=== PATIENT | male | born 1945 | race Asian ===

== ENCOUNTER 2016-05-27 11:56 | Inpatient (IN) | payer MEDICARE, MEDICAID ==
[~2016-05-27] VITALS: Ht 162.6 cm; Wt 63.3 kg
[~2016-05-27 11:56] MED LIST: ACET325T51 PO; BISA10SU61 RC; CALC600T12 PO; CARB200C8 PO; CHOL500051 PO; FINA5TAB9 PO; INSU100C8 SUBQ; INSU100V7 SUBQ; KEP500TA PO; LEVO75TA4 PO; LISI-567 PO; MULT-1018 PO; POLY17PO6 PO; PROC-4 PO; RANI150C4 PO; SENN8.6C6 PO; SIMV20TA4 PO; SULF1TAB7 PO; TAMS0.4C29 PO
[2016-05-27 11:57] VITALS: BP 111/49; PULSE 93; RESP 16; O2SAT 100
--- NOTE | 2016-05-27 12:55 | ED.REPORT ---
HPI-Seizure Date of Service May 27, 2016 ED Provider: Evan Montague MD A 70 year old developmentally-delayed male with an extensive medical history including seizure disorder, CAD, diabetes, and hypertension presents to the ED via EMS from [facility] after a tonic clonic seizure around 0800 this morning. The seizure lasted 30 seconds and was immediately preceded by a feeling of unease. The patient also reports elevated blood sugar (approx. 320) last night as well as hypotension (approx. 80 systolic) at the time of the seizure. However , his primary complaint at this time is fatigue. He denies fevers, vomiting, or pain currently. Per EMS his bp was 118/67 and his blood sugar was 401, after lunch. Nursing Notes Stated Complaint: SEIZURE Chief Complaint: Seizure Nursing Notes Reviewed: Yes ([employer] not reconciled ) Allergies: Coded Allergies: codeine (Verified Adverse Reaction, Unknown, upset stomach, 05/27/16) Scheduled Calcium Carbonate (Calcium) 600 Mg Tablet 600 MG PO TID Carbamazepine ER (Carbamazepine ER) 200 Mg Cpmp.12hr 200 MG PO 4X A DAY Cholecalciferol (Vitamin D3) (Vitamin D) 5,000 Unit Capsule 5,000 UNIT PO DAILY Finasteride (Finasteride) 5 Mg Tablet 5 MG PO DAILY Insulin Aspart (NovoLOG U100 Insulin Vial) 100 U/Ml U UNIT SUBQ SS Insulin Glargine (Lantus U100 Insulin Vial) 100 Unit/Ml Vial 8 UNIT SUBQ HS Levetiracetam (Keppra) 500 Mg Tablet 500 MG PO BID Levothyroxine (Levothyroxine) 75 Mcg Tablet 75 MCG PO DAILY Lisinopril (Lisinopril) 20 Mg Tablet 20 MG PO DAILY Multivitamin (Multi Vitamin Daily) 1 Each Tablet 1 EACH PO DAILY Polyethylene Glycol 3350 (Miralax) 17 Gm Powd.pack 17 GM PO DAILY Prochlorperazine Maleate (Compazine) 10 Mg Tablet 10 MG PO q6hrs prn Ranitidine (Ranitidine) 150 Mg Capsule 150 MG PO BID Sennosides (Senna) 8.6 Mg Capsule 8.6 MG PO DAILY Simvastatin (Simvastatin) 20 Mg Tablet 20 MG PO HS Sulfamethoxazole/Trimeth 800-160 mg (Bactrim DS) 1 Each Tablet 1 TABLET PO BID Tamsulosin ER (Tamsulosin ER) 0.4 Mg Cap.er.24h 0.8 MG PO DAILY Scheduled PRN Acetaminophen (Acetaminophen) 325 Mg Tablet 650 MG PO Q4H PRN PRN For Fever Bisacodyl (Dulcolax Rectal) 10 Mg Supp.rect 10 MG RC DAILY PRN PRN For Constipation General Time Seen by Provider: 12:49 Transferred From: Rehab facility Chief Complaint Chief Complaint: Seizure, generalized Hx Obtained From: Patient, Retail Warehouse Supervisor Arrived By: Ambulance Onset Occurred: 1 - 4 hours ago Symptom Duration: Since onset Progression Since Onset: Resolved Severity: Current: No pain currently Severity: Maximum: No pain Associated with: Denies: Fever Pertinent Negative: Relieved by nothing Related History: Reports: Developmental abnormality, Diabetes mellitus, Known seizure disorder Immunizations: Unknown Recent Healthcare: No recent doctor visit Similar Sx Previous: Yes Past Medical History Past Medical History Notes: Limited due to mental delay Past Medical History IDDM Seizure disorder - on Keppra and carbamazepine Developmental delay, chronic gait abnormality Schizophrenia Bowel cancer - history of stage III node-positive duodenal cancer and underwent subsequent Whipple in July 2009 as well as adjuvant chemotherapy and has remained in remission since Constipation Enlarged prostate Hypothyroid GERD History of hyponatremia attributed to medications Superficial abscess above L knee, MRSA sensitive to sepsa Reports: Coronary artery disease, Diabetes mellitus, Hypertension Past Surgical History Whipple procedure Tonsillectomy Corrective eye surgery as a child Smoking History Former Smoker Social History Other Social History: Lives in rehab facility Ambulatory Status Independent Review of Systems Review of Systems Note: + elevated blood sugar, hypotension (approx. 80 systolic) Constitutional: Reports: Fatigue, Malaise (Prior to seizure), Denies: Fever Cardiovascular: Denies: Chest pain Musculoskeletal: Denies: Back pain Neurologic: Reports: Seizure Complete sys rev & neg: except as marked. GI: Denies: Vomiting Physical Exam Physical Exam Notes: Initial Vital Signs Vital Signs (First) Date Time Temp Pulse Resp B/P Pulse Ox O2 Delivery O2 Flow Rate FiO2 05/27/16 11:57 36.7 93 16 111/49 100 Room Air Initial VS: Reviewed, Vital signs normal General/Constitutional: Awake, Alert, No acute distress Pleasant Neck: Supple, Full range of motion Respiratory / Chest: Breath sounds NL, Breath sounds = bilat, No respiratory distress Cardiovascular: Heart rate NL, Regular rhythm, Heart sounds NL Not hypotensive Neurologic: Oriented X3, Speech NL, No motor deficits, No sensory deficits Ambulated in the ED without walker with no focal deficits - used a walker earlier today which is rare for him Head / Eyes: Atraumatic, Normocephalic ENT: Airway patent Mouth: Positive: Mucous membranes dry Trauma - ENT Specific: Negative: Tongue injury Lower Extremity / Pelvis / MS: Inspection NL, No edema Interpretation & Diagnostics Interpretation & Diagnostics: Anion Gap: 29.0 mmol/L Urine Drug Screen: Negative Lab Results Interpretation Result Diagram: 05/27/16 1325 05/27/16 1325 Test 05/27/16 13:25 05/27/16 14:43 White Blood Count 11.7th/mm3 (3.8-10.1) Red Blood Count 5.80mil/mm3 (4.40-5.80) Hemoglobin 17.5g/dL (13.8-17.2) Hematocrit 51.1% (41.0-50.0) Mean Corpuscular Volume 88.1fL (81-100) Mean Corpuscular Hemoglobin 30.2pg (27.0-35.0) Mean Corpuscular Hemoglobin Concent 34.2% (32.0-37.0) Red Cell Distribution Width 13.1% (12.3-15.4) Platelet Count 181bil/L (150-400) Neutrophils (%) (Auto) 88.4% (40-74) Lymphocytes (%) (Auto) 3.1% (14-46) Monocytes (%) (Auto) 7.8% (4-12) Eosinophils (%) (Auto) 0.1% (0-5) Basophils (%) (Auto) 0.3% (0-3) Sodium Level 139mEq/L (134-144) Potassium Level 5.5mEq/L (3.5-5.2) Chloride Level 94mEq/L (97-108) Carbon Dioxide Level 16mmol/L (18-29) Blood Urea Nitrogen 22mg/dL (8-27) Creatinine 1.25mg/dL (0.76-1.27) Estimat Glomerular Filtration Rate 61mL/min (>59) Glucose Level 587mg/dL (60-99) Calcium Level 9.6mg/dL (8.5-10.1) Total Bilirubin 1.0mg/dL (0.0-1.2) Aspartate Amino Transf (AST/SGOT) 32U/L (0-50) Alanine Aminotransferase (ALT/SGPT) 22U/L (0-44) Alkaline Phosphatase 210U/L (25-160) Troponin T < 0.010ug/L (0.0-0.011) Total Protein 8.6g/dL (6.4-8.4) Albumin 4.7g/dL (3.4-5.0) Hold Milner Top Tube Received (Received) Urine Color Straw (YELLOW) Urine Appearance Hazy (CLEAR,HAZY) Urine pH 6.0 (5.0-8.0) Urine Specific Sullivan 1.010 (1.003-1.035) Urine Protein Negativemg/dL (NEG,TRACE) Urine Glucose (UA) 1000mg/dL (NEGATIVE) Urine Ketones 15mg/dL (NEGATIVE) Urine Occult Blood Trace (NEGATIVE) Urine Nitrite Negative (NEGATIVE) Urine Bilirubin Negative (NEGATIVE) Urine Urobilinogen Normalmg/dL (NORMAL) Urine Leukocyte Esterase Negative (NEGATIVE) Urine RBC 0-2/hpf (0-2) Urine WBC 0-5/hpf (0-5) Urine Epithelial Cells Occasional/hpf (NONE-MOD) Urine Crystals None seen (NONE SEEN) Urine Bacteria None/hpf (NONE-FEW) Urine Hyaline Casts None/lpf (NONE) Urine Granular Casts None seen (NONE SEEN) Urine Waxy Casts None seen (NONE SEEN) Urine Red Blood Cell Casts None seen (NONE SEEN) Urine White Blood Cell Casts None seen (NONE SEEN) Urine Mucus None seen (None Seen) Urine Trichomonas None seen (NONE SEEN) Urine Yeast None (NONE SEEN) Urinalysis Comment None Urine Culture Reflexed Not indicated Lab Results Interpretation: CBC mild leukocytosis, positive hemoconcentration with elevated hematocrit CMP trace hyperkalemia, moderate metabolic acidosis, severe hyperglycemia-calculated anion gap is 29 consistent with DKA Troponin negative Blood cultures 2 pending UA negative ECG Interpretation ECG Interpretation: Normal sinus rhythm rate 84 No acute ischemic changes No findings of hyperkalemia Time: 15:11 Interpreted by: ED physician X-Ray Chest Interpretation Chest Xray Interpretation: IMPRESSION: No acute cardiopulmonary disease process. Dictated by: Ashli Richards MD, PhD on 05/27/2016 at 15:45 View: Portable, 1 view Interpretation / Wet Read by: Interpret - Radiologist Re-Eval/Medical Decision Med Decision/Clinical Course This is a 70-year-old male resides at a local facility with moderate developmental delay. The patient is a diabetic, and also has a chronic seizure disorder multiple meds. Apparently he normally has a walker that he has access to, but almost never needs-but today he uses a walker to make it out to the nursing center indicate he felt really terrible and weak-and just subsequent to telling the nurses this he had a brief 15 second seizure, with rapid resolution , and return to baseline in terms of mental status-but he was noted to have a blood pressure of 80 facility, and a severely elevated glucose. 911 was initiated, and EMS came-for then the patient was never hypotensive with normal blood pressures, but did have the elevated glucose. The patient's normotensive here in the department, he is energetic and does not appear toxic or weak. He is actually able to and leg. He denies any injury or pain from the seizure. He did not bite his lip or tongue. He denies any infectious symptoms. His lungs are clear, heart tones are normal. He denies chest pain or shortness of breath. His abdomen is soft nontender. He denies dysuria. He is actually able to get up and ambulate here the weakness that he demonstrated at the facility prior to the seizure. Patient is awake alert oriented and at baseline. He has no focal deficits-is no visible signs of trauma, and I am not finding indication that emergent CT scanning of the brain is indicated given long-standing seizure disorder. His Accu-Chek is quite elevated, so labs were obtained. He appears moderately dehydrated with dry mucous membranes, so IV was placed with a lab draw. Labs demonstrate findings consistent with ketoacidosis with a moderate metabolic acidosis, hyperglycemia, and elevated anion gap. A metabolic acidosis could also be caused by seizure activity, however the nurses describe a seizure of only 15 seconds duration (I called and talked to them), the patient appears clinically dehydrated, has an elevated crit compatible with hemoconcentration, and so I suspected this acidosis is indeed secondary to DKA and rather not a alternate etiology. The patient received 10 units of subcutaneous regular insulin, while waiting for labs to return, along with hydration. He is started on a DKA insulin drip, and will require ICU admission given this, however I suspect he may turn around fairly rapidly. Patient has apparently been doing well enough that his diabetic regimen had recently been reduced-please see the MARS details from the long-term. Clinically from the patient, as well as from the staff the nursing facility, I have not been able to this department and immediately precipitant of DKA. EKG and troponin are both normal without signs of ischemia, he has a mild leukocytosis but this is nonspecific and he had a transient seizure. Blood cultures have been drawn. UA is negative. Chest x-rays negative. Source of Hx: Old records Re-Evaluation/Progress #1: Time of Eval: 14:46 Patient Status: Condition improved Re-Evaluation/Progress Note: Discussed with patient lab results, diagnosis, and plan for admit. Patient agrees with plan for care and all questions were addressed. Re-Evaluation/Progress #2: Time of Eval: 17:22 Re-Evaluation/Progress Note: I have just learned, that although if ordered a DKA insulin drip on paper at around 1615, pharmacy reports that they never received the orders medications have not yet been started. Pharmacy is working to rapidly mixed things up and get that to the nurse. Consultation #1: Call Returned at: 13:24 Computer Programmer Analyst: Agrees with eval, Agrees with plan Note: [place]: Additional history obtained. Consultation #2: Referral / Consult Name: Adan Sam MD Consulted With: Hospitalist Call Returned at: 15:12 Computer Programmer Analyst: Agrees with eval, Agrees with plan, Accepts admit Differential Diagnosis: Positive: Seizure disorder, Seizure, tonic-clonic, Negative: Anticonvulsant withdrawal, Hypocalcemia, Hyponatremia, Hypoxemia, Intracranial bleed, Intracranial mass/lesion Counseled Regarding: Diagnosis, Lab results, Need for admission Discharge & Departure Impression: Primary Impression: Diabetic ketoacidosis Diabetes mellitus type: type 1 Diabetes mellitus complication detail: without coma Qualified Code: E10.10 - Type 1 diabetes mellitus with ketoacidosis without coma Additional Impression: Seizure disorder Disposition: ADMITTED TO HOSPITAL Discharge Condition All VS Reviewed: Yes Condition: Stable Referrals: Aroldo Torres MD (PCP) Crit Care Except Billable Proc Time Spent: 30-74 minutes Services Performed: Patient management by me, Time spent at bedside, Reviewing test results, Reviewing imaging, Discussing patient care Scribe Attestation Portions of this note were transcribed by Sultana Partida. I, Dr. Montague, personally performed the history, physical exam, and medical decision-making; I reviewed and confirmed the accuracy of the information in the transcribed note. Signed by: Alexx Cheng, 05/27/2016, 15:20 copies to: Aroldo Torres MD, Matthew F MD May 27, 2016 12:55 SULTANA PARTIDA May 27, 2016 13:13
[2016-05-27] MEDS ORDERED: 0.9% Sodium Chloride 1,000 ML IV ONE ×2 (13:20→14:10)
[2016-05-27] MEDS ORDERED: Insulin Human REGular-Omnicell 100 Unit/mL SUBQ ONE (13:20)
[2016-05-27 13:31] LABS: BASOPHILS % (AUTO) 0.3 % (0-3); EOSINOPHILS % (AUTO) 0.1 % (0-5); MONOCYTES % (AUTO) 7.8 % (4-12); Mean Corpuscular Hemoglobin 30.2 pg (27.0-35.0); Mean Corpuscular Volume 88.1 fL (81-100); NEUTROPHILS % (AUTO) 88.4 % (40-74); Platelet Count 181 bil/L (150-400)
[2016-05-27 14:58] LABS: APPEARANCE,URINE HAZY (CLEAR,HAZY); COLOR,URINE STRAW (YELLOW); OCCULT BLOOD,URINE TRACE (NEGATIVE); UROBILINOGEN,URINE NORMAL (NORMAL)
[2016-05-27] MEDS ORDERED: Alum-Mag Hydrox-Simeth 30 mL Suspension PO PRN (15:25)
[2016-05-27] MEDS ORDERED: Senna-Docusate 8.6-50 mg Tablet PO PRN (15:25)
[2016-05-27] MEDS ORDERED: Polyethylene Glycol (PEG) 17 Gm Powder PO PRN (15:25)
[2016-05-27] MEDS ORDERED: Ondansetron 2 mg/mL 2 mL Inj IVPUSH PRN (15:25)
--- NOTE | 2016-05-27 15:47 | DRSVH ---
PROCEDURE: X-RAY CHEST ONE VIEW, PORTABLE ([id number]) INDICATIONS: DKA ?source, ro pneumonia TECHNIQUE: One view of the chest was acquired. COMPARISON: [facility], CR, XR CHEST 1VW (PORTABLE), 11/08/2015, 9:30. FINDINGS: Surgical changes and devices: Surgical clips project over the upper abdomen which are stable compared to prior examination.. Lungs and pleura: No pleural effusions or pneumothorax. Lungs are clear. Mild elevation the left he midiaphragm is stable. Mediastinum: Mediastinal contours appear normal. Heart size is normal. Bones and chest wall: No suspicious bony lesions. Overlying soft tissues appear unremarkable. Chron ic right eighth rib fracture is noted. IMPRESSION: No acute cardiopulmonary disease process. Dictated by: Ashli Richards MD, PhD on 05/27/2016 at 15:45 Approved by: Ashli Richards MD, PhD on 05/27/2016 at 15:45
[2016-05-27 17:16] VITALS: BP 134/73; PULSE 94; RESP 16; O2SAT 98
[2016-05-27] MEDS ORDERED: DOCU-41 PO (17:28)
[2016-05-27] MEDS ORDERED: LEVE750T16 PO (17:29)
[2016-05-27] MEDS ORDERED: Insulin Human REGular Inj 100 UNIT in 0.9% Sodium Chloride 100 ML IV SCH (17:30)
[2016-05-27 17:50] VITALS: BP 134/73; PULSE 94; RESP 16; O2SAT 98
--- NOTE | 2016-05-27 17:53 | PCM.HPMED ---
Subjective Date of Service May 27, 2016 Primary Provider: Admitting Physician: Adan Sam MD Primary Care Physician: Aroldo Torres MD Attending Physician: Adan Sam MD Admit Status: From the Emergency Department, Full Admit, Critical Care Chief Complaint: DKA. Seizure. History of Present Illness: This is a 70-year-old gentleman with a history of insulin-dependent diabetes mellitus 2 as well as seizure disorder. He also appears to have history of cognitive delay. He resides at [facility]. He is sedentary that his seizure today which brought him to medical attention in the emergency department. There he was found to be hyperglycemic with an anion gap and a CO2 of about 16. The patient notes his blood sugars been riding high for about 2 weeks in the mid 300s. He has had polydipsia and polyuria and has felt extremely thirsty and dehydrated as well as weak. He denies any rhinorrhea cough or sore throat. No myalgias or arthralgias. He notes that he may miss 1 or 2 doses of both Humalog and Lantus because of dysfunction of his pen. He has a sliding scale Humalog and 8 units of Lantus at bedtime. Chest x-ray is negative for infiltrate urine dip is negative. He cannot really identify any obvious symptoms of infection. Review of Systems: No visual changes or hearing loss. No rhinorrhea. He denies any diarrhea, blood per rectum nausea or vomiting. He has had a relatively normal appetite although he has not eaten today. He denies any any skin rash or lesions or recent falls. Also reviewed and otherwise negative except as noted in history of present illness. Allergies Coded Allergies: codeine (Verified Adverse Reaction, Unknown, upset stomach, 05/27/16) Home Medications Humalog sliding scale, Lantus at 8 at bedtime PMH 1. Diabetes mellitus 2, insulin-dependent 2. History of pancreas tumor 3. Seizure disorder 4. Cognitive impairment Surgical History 1. Whipple procedure. Family History Positive for diabetes, mother Social History Occupation: none Hx Alcohol Use: No Hx Substance Use: No Hx Tobacco Use: No Smoking Status: Former Smoker Living Arrangement: Longterm Facility Exam Vital Signs Vital Sign - Last Date Time Temp Pulse Resp B/P Pulse Ox O2 Delivery O2 Flow Rate FiO2 05/27/16 17:16 94 16 134/73 98 Room Air 05/27/16 11:57 36.7 Exam Alert oriented 3, slow answers to questions. No acute distress. Fluent but somewhat broken speech Normal scalp Normal nose and ears Anicteric sclerae, symmetric pupils Oropharynx free of facial droop. Dry oral mucosa. Neck is supple with flat neck veins. Normal thyroid. No adenopathy. Lungs are clear, normal effort. Heart is regular without murmur gallop or rub. Abdomen is soft nondistended without focal tenderness guarding or rebound. Extremities are free of edema.. Good radial and pedal pulses. Skin is free of rash, or lesions. No ecchymosis. Strength +5 all extremities. Muscle tone is normal. Joints are not swollen or deformed. Lab and Diagnostics Result Diagram: 05/27/16 1325 05/27/16 1325 X-Rays, CTs and MRIs Chest x-ray is unremarkable 12-lead ECG Sinus rhythm. No acute ST segment changes. Assessment & Plan 1. DKA. POA. The plan is to admit the patient on a DKA protocol in the CCU on an insulin drip. We will fluid resuscitate with normal saline at 150 per hour. We will follow electrolytes and anion gap carefully. 2. Seizure, with history of seizure. POA. Plan is to resume normal medications and normal doses and follow closely. 3. Cognitive delay. POA. 4. Volume depletion. IVF (NS @ 150/hr) Patient is full resuscitation. Admitted inpt status, estimated LOS is over 2 nights. Pain Evaluation: Adequate Pain Control Resuscitation Status: CPR: Attempt Resuscitation Time spent 40 minutes Adan Sam MD May 27, 2016 17:53
[2016-05-27] MEDS: Calcium Carbonate (Oyster Shell) 500 mg Tablet PO SCH (18:30)
[2016-05-27] MEDS: 0.9% Sodium Chloride 1,000 ML IV SCH (18:58)
[2016-05-27] MEDS ORDERED: D5W1/2NS 1,000 mL IV PRN (19:20)
--- NOTE | 2016-05-27 19:46 | NUR ---
ADMIT TO CCU Report received from RN in ED. Patient arrives to unit at 1755, in stable condition w/ insulin gtt infusing @ 12.6 units/hr and NS @ 150 mL/hr, for a blood sugar of 379 in ED, per DKA protocol. Blood sugar upon arrival was 360, so continued current infusion settings. Patient's vitals WNL, no complaints of pain. Will continue to monitor blood sugars and adjust gtt per DKA protocol.
[2016-05-27 20:13] VITALS: BP 112/53; PULSE 92; RESP 21; O2SAT 99
[2016-05-27] MEDS: carBAMazepine 200 mg ER12 Tablet PO SCH (20:25)
[2016-05-28 00:15] VITALS: BP 93/52; PULSE 62; RESP 16; O2SAT 98
[2016-05-28 02:08] LABS: BASOPHILS % (AUTO) 0.1 % (0-3); EOSINOPHILS % (AUTO) 0.1 % (0-5); MONOCYTES % (AUTO) 12.3 % (4-12); Mean Corpuscular Hemoglobin 30.8 pg (27.0-35.0); Mean Corpuscular Volume 86.7 fL (81-100); NEUTROPHILS % (AUTO) 79.7 % (40-74); Platelet Count 173 bil/L (150-400)
[2016-05-28] MEDS: 0.9% Sodium Chloride 1,000 ML IV SCH ×3 (02:40→14:07)
[2016-05-28] MEDS ORDERED: KCl 40 mEq/D5W 500 mL 40 MEQ in IV Premix 1 EACH IV ONE (03:55)
[2016-05-28 03:59] VITALS: BP 92/57; PULSE 60; RESP 23; O2SAT 97
--- NOTE | 2016-05-28 05:39 | NUR ---
DKA Protocol Insulin gtt, NS @ 15o cc/hr hydrating IVF, D10W or D5 1/2 IVF alternating, BG 91-133, anion gap 10, K+ 3.3 with am labs, started Kcl 40 meq over 4 hrs. HR 57-70's SB-SR, sbp 90's, map>60, pt mentating well, Hospitalist aware with no new order.
[2016-05-28 07:31] VITALS: BP 94/50; PULSE 54; RESP 15; O2SAT 100
[2016-05-28] MEDS ORDERED: Glucose 40% Oral Gel 15 Gm Tube PO PRN (07:35)
[2016-05-28] MEDS ORDERED: Insulin GLARgine 100 Unit/mL Syringe SUBQ ONE (07:35)
--- NOTE | 2016-05-28 07:39 | PCM.PNMED ---
Subjective Date of Service May 28, 2016 Subjective He feels much better. He denies nausea. No difficulty with breathing. No chest or abdominal pain. He is hungry. Exam Vital Signs Vital Sign - Last Date Time Temp Pulse Resp B/P Pulse Ox O2 Delivery O2 Flow Rate FiO2 05/28/16 03:59 36.4 60 23 92/57 97 Room Air Intake and Output 05/27/16 05/27/16 05/28/16 Cumulative From/Thru 15:00 23:00 07:00 05/27/16 11:57 - 05/28/16 05:28 Intake Total 1000 ml 2271 ml 3271 ml Output Total 200 ml 200 ml Balance 1000 ml 2071 ml 3071 ml Intake Oral 75 ml 75 ml IV Total 1000 ml 2196 ml 3196 ml Output Urine Total 200 ml 200 ml # Bowel Movements 0 0 Exam Alert oriented 3. Fluent speech. Anicteric sclerae. Neck supple Lungs are clear, normal effort. Heart is regular without murmur gallop or rub. Abdomen soft nondistended Extremities are free of edema. IVs and Medications Medications Reviewed: Medications were reviewed in detail Lab and Diagnostics Result Diagram: 05/28/16 0200 05/28/16 0200 X-Rays, CTs and MRIs Chest x-ray is unremarkable 12-lead ECG Sinus rhythm. No acute ST segment changes. Assessment & Plan 1. DKA. POA. Resolved. The patient will be converted to subcutaneous insulin today with Lantus 10 now and then 8 daily at bedtime. Will also use 5 of nutritional lispro with correctional. Continue fluid resuscitation with saline at 100. We will check A1c. 2. Seizure, with history of seizure. POA. Plan is to resume normal medications and normal doses and follow closely. 3. Cognitive delay. POA. This is stable. 4. Volume depletion. IVF (NS @ 100/hr) 5. Hypokalemia. The patient will be repleted with a K rider today. We will follow on telemetry. Patient is full resuscitation. Admitted inpt status, estimated LOS is over 2 nights. Pain Evaluation: Adequate Pain Control VTE Mechanical Devices: Intermittant Pneumatic CD Resuscitation Status: CPR: Attempt Resuscitation Time spent 25 minutes Adan Sam MD May 28, 2016 07:39
--- NOTE | 2016-05-28 07:43 | NUR ---
Transfer.. Blood Glucose has been stable and anion gap has normalized. Seen by Dr Sam and will now be transitioned to subcutaneous insulin. Pt feels well and will start on diet. Will tx to [facility] when bed is available
[2016-05-28] MEDS: Insulin LISPRO 300 Unit/3 mL Inj SUBQ SCH ×4 (08:26→20:07)
[2016-05-28] MEDS: Calcium Carbonate (Oyster Shell) 500 mg Tablet PO SCH ×3 (10:27→18:46)
[2016-05-28] MEDS: carBAMazepine 200 mg ER12 Tablet PO SCH ×2 (10:59→20:08)
--- NOTE | 2016-05-28 11:00 | NUR ---
Transfer from [facility] Patient arrived from [facility] via wheelchair. Patient alert and oriented. Patient given his Tegretol XR on arrival to unit.
[2016-05-28 12:25] VITALS: BP 124/72; PULSE 58; RESP 18; O2SAT 99
[2016-05-28 18:47] VITALS: BP 94/57; PULSE 58; RESP 18; O2SAT 99
[2016-05-28] MEDS ORDERED: Insulin GLARgine 100 Unit/mL Syringe SUBQ SCH (21:00)
[2016-05-28 22:06] VITALS: BP 156/77; PULSE 64; RESP 18; O2SAT 95
[2016-05-29] MEDS: 0.9% Sodium Chloride 1,000 ML IV SCH ×2 (01:22→10:59)
[2016-05-29 04:38] VITALS: BP 143/69; PULSE 56; RESP 18; O2SAT 94
--- NOTE | 2016-05-29 05:32 | NUR ---
Uneventful Night Pt denies any pain/SOB/cough/N/V/fever/chills/seizures. Alert and orientedx3, void sufficient urine in urinal. VSS, sleeping most of night. BS 233 at HS, Lantus 8 units and correctional Regular Insulin 1 unit given at HS, recheck BS 119 at 0300.
[2016-05-29 05:50] VITALS: PULSE 63
[2016-05-29] MEDS: Insulin LISPRO 300 Unit/3 mL Inj SUBQ SCH ×2 (08:01→10:59)
[2016-05-29] MEDS: Calcium Carbonate (Oyster Shell) 500 mg Tablet PO SCH ×2 (08:04→10:59)
[2016-05-29] MEDS: carBAMazepine 200 mg ER12 Tablet PO SCH (08:04)
[2016-05-29 10:13] VITALS: PULSE 82
[2016-05-29 10:20] LABS: BASOPHILS % (AUTO) 0.5 % (0-3); EOSINOPHILS % (AUTO) 1.8 % (0-5); MONOCYTES % (AUTO) 8.2 % (4-12); Mean Corpuscular Hemoglobin 30.7 pg (27.0-35.0); Mean Corpuscular Volume 88.2 fL (81-100); NEUTROPHILS % (AUTO) 75.1 % (40-74); Platelet Count 140 bil/L (150-400)
[2016-05-29 10:43] LABS: Magnesium 1.6 mg/dL (1.6-2.6); Phosphorus 2.6 mg/dL (2.5-4.9)
[2016-05-29] MEDS ORDERED: Magnesium Sulf 2 Gm/50mL Water 2 GM in IV Premix 1 EACH IV ONE (11:20)
--- NOTE | 2016-05-29 11:25 | PCM.DIMED ---
Discharge Instructions Date of Service May 29, 2016 Dates of Hospitalization May 27, 2016 at 15:26 Discharge Diagnosis Discharge Diagnosis DKA Diet Diabetic Activity No restrictions Patient Instructions You were hospitalized with mild Diabetic ketoacidosis, which resolved with additional insulin. Instruction to SNF> Please adjust Lantus dosage based on fasting blood sugars, pt currently asymptomatic, labs were stable with lantus 8units and lispro sliding scale. Please provide diabetic diet, as diet discretion seemed a probable triggering factor for this episode. Follow-up plan please follow up with your primary doctor Follow-up with PCP in: 2 weeks Yousif Gordillo MD May 29, 2016 11:25
--- NOTE | 2016-05-29 13:39 | NUR ---
Social Work: Initial Assessment / D/C Data: Pt is a 70 y/o male admitted for DKA. Pt's PCP is Dr Torres, pt's insurance is Medicare with [facility] supp. EMR reivewed. PROVISIONING SPECIALIST met with pt at bedside, role explained. Pt states he lives at [facility] and that he does not drive. Pt has no HH history, no LTC or VA benefits and is not a caregiver for another. Pt agreeable to returning [place] [facility] PROVISIONING SPECIALIST called [facility] [place] that pt can return today. They set up transportation for 2:00pm. No further d/c planning needs at this time. PROVISIONING SPECIALIST will continue to follow if needs arise. Assessment: Pt who is independent at baseline. Plan: Pt will d/c to [facility] today via cabulance at 2:00pm. No further d/c planning needs at this time. PROVISIONING SPECIALIST will continue to follow if needs arise. MONA Costa Addendum: 05/29/16 at 1342 by WES GEORGE Amended: Links added.
--- NOTE | 2016-05-29 14:04 | NUR ---
Social Work: Discharge Data: Pt is on day 2 of hospitalization. EMR reviewed, d/c orders are in. DIRECTOR COUNCIL ON AGING called [facility] who can accept pt today. Pt will d/c via cabulance at 2:00pm today to [facility]. No further d/c planning needed. Assessment: Pt from SNF. Plan: Pt will d/c via cabulance at 2:00pm today to [facility]. No further d/c planning needed. MONA Costa
--- NOTE | 2016-05-29 14:05 | NUR ---
Discharge Pt discharged back to [facility] at 1404. Taken off unit by [facility] transport service. Transfer paperwork sent with transporter. Pt belongings sent with pt, and wallet collected from the safe and returned to pt. Report called to Milly at [facility].
--- NOTE | 2016-05-30 13:40 | PCM.DC.MED ---
Discharge Summary Date of Service May 29, 2016 Dates of Hospitalization Date of Hospital Admission May 27, 2016 at 15:26 Date of Discharge: May 29, 2016 Providers: Admitting Physician: Adan Sam MD Primary Care Physician: Aroldo Torres MD Attending Physician: Adan Sam MD Diagnosis at Time of Discharge Diagnosis at Time of Discharge DKA Procedures XRay, CTs & MRIs Chest x-ray is unremarkable ECG 12 Lead Sinus rhythm. No acute ST segment changes. Brief History H&P performed by Dr. Sam on May 27 This is a 70-year-old gentleman with a history of insulin-dependent diabetes mellitus 2 as well as seizure disorder. He also appears to have history of cognitive delay. He resides at [facility]. He is sedentary that his seizure today which brought him to medical attention in the emergency department. There he was found to be hyperglycemic with an anion gap and a CO2 of about 16. The patient notes his blood sugars been riding high for about 2 weeks in the mid 300s. He has had polydipsia and polyuria and has felt extremely thirsty and dehydrated as well as weak. He denies any rhinorrhea cough or sore throat. No myalgias or arthralgias. He notes that he may miss 1 or 2 doses of both Humalog and Lantus because of dysfunction of his pen. He has a sliding scale Humalog and 8 units of Lantus at bedtime. Chest x-ray is negative for infiltrate urine dip is negative. He cannot really identify any obvious symptoms of infection. Hospital Course Patient was admitted with mild DKA, hyperglycemia 500s, anion gap of 29, started on DKA protocol with insulin gtt, successfully transitioned to long- acting Lantus with lispro sliding scale. Patient tolerated diet well, lying get resolved, denied any symptoms, deemed safe for discharge. Patient remained afebrile, there was no signs of infection could possibly trigger DKA. It was thought that dietary discretion possibly playing a role given patient's cognitive dysfunction, the fact med-noncompliance is unlikely as patient was monitored in SNF. Exam Vital Signs (Last) Date Time Temp Pulse Resp B/P Pulse Ox O2 Delivery O2 Flow Rate FiO2 05/29/16 10:13 82 05/29/16 04:38 36.7 18 143/69 94 Room Air Exam NAD, comfortably laying down on the bed no JVD, MMM, no LAD RRR, nl s1, s2 no mrg CTAB, no w,c S,ND,NT,normoactive BS+ warm, no edema, pulses 2/2 Test 05/27/16 13:25 05/27/16 14:43 05/28/16 02:00 05/29/16 10:13 Troponin T < 0.010ug/L (0.0-0.011) Hold Milner Top Tube Received (Received) Urine Color Straw (YELLOW) Urine Appearance Hazy (CLEAR,HAZY) Urine pH 6.0 (5.0-8.0) Urine Specific [place] 1.010 (1.003-1.035) Urine Protein Negativemg/dL (NEG,TRACE) Urine Glucose (UA) 1000mg/dL (NEGATIVE) Urine Ketones 15mg/dL (NEGATIVE) Urine Occult Blood Trace (NEGATIVE) Urine Nitrite Negative (NEGATIVE) Urine Bilirubin Negative (NEGATIVE) Urine Urobilinogen Normalmg/dL (NORMAL) Urine Leukocyte Esterase Negative (NEGATIVE) Urine RBC 0-2/hpf (0-2) Urine WBC 0-5/hpf (0-5) Urine Epithelial Cells Occasional/hpf (NONE-MOD) Urine Crystals None seen (NONE SEEN) Urine Bacteria None/hpf (NONE-FEW) Urine Hyaline Casts None/lpf (NONE) Urine Granular Casts None seen (NONE SEEN) Urine Waxy Casts None seen (NONE SEEN) Urine Red Blood Cell Casts None seen (NONE SEEN) Urine White Blood Cell Casts None seen (NONE SEEN) Urine Mucus None seen (None Seen) Urine Trichomonas None seen (NONE SEEN) Urine Yeast None (NONE SEEN) Urinalysis Comment None Urine Culture Reflexed Not indicated Hemoglobin A1c 9.6% (4.8-5.6) White Blood Count 7.9th/mm3 (3.8-10.1) Red Blood Count 4.56mil/mm3 (4.40-5.80) Hemoglobin 14.0g/dL (13.8-17.2) Hematocrit 40.2% (41.0-50.0) Mean Corpuscular Volume 88.2fL (81-100) Mean Corpuscular Hemoglobin 30.7pg (27.0-35.0) Mean Corpuscular Hemoglobin Concent 34.8% (32.0-37.0) Red Cell Distribution Width 12.9% (12.3-15.4) Platelet Count 140bil/L (150-400) Neutrophils (%) (Auto) 75.1% (40-74) Lymphocytes (%) (Auto) 14.1% (14-46) Monocytes (%) (Auto) 8.2% (4-12) Eosinophils (%) (Auto) 1.8% (0-5) Basophils (%) (Auto) 0.5% (0-3) Sodium Level 138mEq/L (134-144) Potassium Level 4.2mEq/L (3.5-5.2) Chloride Level 106mEq/L (97-108) Carbon Dioxide Level 21mmol/L (18-29) Blood Urea Nitrogen 15mg/dL (8-27) Creatinine 0.79mg/dL (0.76-1.27) Estimat Glomerular Filtration Rate 103mL/min (>59) Glucose Level 219mg/dL (60-99) Calcium Level 7.9mg/dL (8.5-10.1) Phosphorus Level 2.6mg/dL (2.5-4.9) Magnesium Level 1.6mg/dL (1.6-2.6) Total Bilirubin 0.3mg/dL (0.0-1.2) Aspartate Amino Transf (AST/SGOT) 19U/L (0-50) Alanine Aminotransferase (ALT/SGPT) 14U/L (0-44) Alkaline Phosphatase 113U/L (25-160) Total Protein 5.7g/dL (6.4-8.4) Albumin 3.2g/dL (3.4-5.0) Discharge Medications Discharge Medications Calcium Carbonate (Calcium) 600 Mg Tablet 600 MG PO TID (Reported) Carbamazepine ER (Carbamazepine ER) 200 Mg Cpmp.12hr 200 MG PO BID (Reported) Cholecalciferol (Vitamin D3) (Vitamin D) 5,000 Unit Capsule 5,000 UNIT PO DAILY (Reported) Docusate Sodium (Colace) 100 Mg Capsule 100 MG PO BID (Reported) Finasteride (Finasteride) 5 Mg Tablet 5 MG PO DAILY (Reported) Insulin Aspart (NovoLOG U100 Insulin Vial) 100 U/Ml U UNIT SUBQ SS (Reported) Insulin Glargine (Lantus U100 Insulin Vial) 100 Unit/Ml Vial 8 UNIT SUBQ HS ( Reported) Levetiracetam (Keppra) 750 Mg Tablet 750 MG PO BID (Reported) Levothyroxine (Levothyroxine) 75 Mcg Tablet 75 MCG PO DAILY (Reported) Lisinopril (Lisinopril) 20 Mg Tablet 20 MG PO DAILY (Reported) Multivitamin (Multi Vitamin Daily) 1 Each Tablet 1 EACH PO DAILY (Reported) Polyethylene Glycol 3350 (Miralax) 17 Gm Powd.pack 17 GM PO DAILY (Reported) Prochlorperazine Maleate (Compazine) 10 Mg Tablet 10 MG PO q6hrs prn (Reported) Ranitidine (Ranitidine) 150 Mg Capsule 150 MG PO BID (Reported) Sennosides (Senna) 8.6 Mg Capsule 8.6 MG PO DAILY (Reported) Simvastatin (Simvastatin) 20 Mg Tablet 20 MG PO HS (Reported) Tamsulosin ER (Tamsulosin ER) 0.4 Mg Cap.er.24h 0.8 MG PO DAILY (Reported) As needed Acetaminophen (Acetaminophen) 325 Mg Tablet 650 MG PO Q4H PRN PRN For Fever ( Reported) Bisacodyl (Dulcolax Rectal) 10 Mg Supp.rect 10 MG RC DAILY PRN PRN For Constipation (Reported) Followup Plan Disposition: residential facility Follow-up plan please follow up with your primary doctor Discharge Diet: Diabetic Discharge Activity: No restrictions Patient Instructions You were hospitalized with mild Diabetic ketoacidosis, which resolved with additional insulin. Instruction to SNF> Please adjust Lantus dosage based on fasting blood sugars, pt currently asymptomatic, labs were stable with lantus 8units and lispro sliding scale. Please provide diabetic diet, as diet discretion seemed a probable triggering factor for this episode. Follow-up with PCP in: 2 weeks Time spent 65 minutes Yousif Gordillo MD May 30, 2016 13:40
== END 2016-05-29 14:05 | DRG 638 ==
LOC: SED 11:56 → CCU 15:26 → PCC 05-28 07:45 → MPC 05-28 10:32
PROVIDERS: ADMIT Hospitalist; ATTEND Hospitalist
DX: E13.10 Other specified diabetes mellitus with ketoacidosis without coma (principal); E87.4 Mixed disorder of acid-base balance; E03.9 Hypothyroidism, unspecified; K21.9 Gastro-esophageal reflux disease without esophagitis; I10 Essential (primary) hypertension; I25.10 Atherosclerotic heart disease of native coronary artery without angina pectoris; Z87.891 Personal history of nicotine dependence; G40.909 Epilepsy, unspecified, not intractable, without status epilepticus; Z79.4 Long term (current) use of insulin

== ENCOUNTER 2016-09-07 14:23 | Inpatient (IN) | payer MEDICARE, MEDICAID ==
[~2016-09-07] VITALS: Ht 162.6 cm; Wt 66.9 kg
[~2016-09-07 14:23] MED LIST changes: -BISA10SU61 RC; +DOCU-41 PO; -KEP500TA PO; +LEVE750T16 PO; -PROC-4 PO; -SULF1TAB7 PO
[2016-09-07 14:36] VITALS: BP 103/56; PULSE 77; RESP 16; O2SAT 100
--- NOTE | 2016-09-07 14:47 | ED.REPORT ---
HPI-General Illness Date of Service September 07, 2016 ED Provider: French West DO Pt is a 71 year old male with a hx of DM, schizophrenia, bowel cancer, CAD, HTN and a hernia presenting to the ED via EMS from [facility] complaining of hyperglycemia today. Associated symptoms include erythema on the right groin. Denies fever, chest pain, cough, vomiting or abdominal pain. His blood sugar at 1200 was 500 and at 1300 was 600. Nursing Notes Stated Complaint: HIGH BLOOD SUGAR Chief Complaint: General Complaint Nursing Notes Reviewed: Yes Allergies: Coded Allergies: codeine (Verified Adverse Reaction, Unknown, upset stomach, 05/27/16) Scheduled Calcium Carbonate (Calcium) 600 Mg Tablet 600 MG PO TID Carbamazepine ER (Carbamazepine ER) 200 Mg Cpmp.12hr 200 MG PO BID Cholecalciferol (Vitamin D3) (Vitamin D) 5,000 Unit Capsule 5,000 UNIT PO DAILY Docusate Sodium (Colace) 100 Mg Capsule 100 MG PO BID Finasteride (Finasteride) 5 Mg Tablet 5 MG PO DAILY Insulin Aspart (NovoLOG U100 Insulin Vial) 100 U/Ml U UNIT SUBQ SS Insulin Glargine (Lantus U100 Insulin Vial) 100 Unit/Ml Vial 8 UNIT SUBQ HS Levetiracetam (Keppra) 750 Mg Tablet 750 MG PO BID Levothyroxine (Levothyroxine) 75 Mcg Tablet 75 MCG PO DAILY Lisinopril (Lisinopril) 20 Mg Tablet 20 MG PO DAILY Multivitamin (Multi Vitamin Daily) 1 Each Tablet 1 EACH PO DAILY Polyethylene Glycol 3350 (Miralax) 17 Gm Powd.pack 17 GM PO DAILY Ranitidine (Ranitidine) 150 Mg Capsule 150 MG PO BID Simvastatin (Simvastatin) 20 Mg Tablet 20 MG PO HS Tamsulosin (Flomax) 0.4 Mg Capsule 0.4 MG PO DAILY Tamsulosin ER (Tamsulosin ER) 0.4 Mg Cap.er.24h 0.4 MG PO DAILY Scheduled PRN Acetaminophen (Acetaminophen) 325 Mg Tablet 650 MG PO Q4H PRN PRN For Fever Sennosides (Senna) 8.6 Mg Tablet 8.6 MG PO PRN For Constipation General Time Seen by MD: 14:41 Chief Complaint Other (Hyperglycemia) Hx Obtained From: Patient, EMS Arrived By: Ambulance Sudden in Onset?: No Onset Occurred: 1 - 4 hours ago Symptom Duration: Since onset Severity: Current: No pain currently Severity: Maximum: No pain Recent Healthcare: No recent doctor visit, No recent hospitalization Similar Sx Previous: Yes Past Medical History Past Medical History Notes: Limited due to mental delay Past Medical History IDDM Seizure disorder - on Keppra and carbamazepine Developmental delay, chronic gait abnormality Schizophrenia Bowel cancer - history of stage III node-positive duodenal cancer and underwent subsequent Whipple in July 2009 as well as adjuvant chemotherapy and has remained in remission since Constipation Enlarged prostate Hypothyroid GERD History of hyponatremia attributed to medications Superficial abscess above L knee, MRSA sensitive to sepsa Reports: Coronary artery disease, Diabetes mellitus, Hypertension Past Surgical History Whipple procedure Tonsillectomy Corrective eye surgery as a child Smoking History Former Smoker Social History Other Social History: Lives in rehab facility Ambulatory Status Independent Review of Systems Full Review of Systems Constitutional: Denies: Fever Respiratory: Denies: Non-productive cough Cardiovascular: Denies: Chest pain GI: Denies: Abdominal pain, Nausea, Vomiting Skin: Reports Rash (Groin) Complete sys rev & neg: except as marked. Physical Exam Vital Signs Vital Signs Date Time Temp Pulse Resp B/P Pulse Ox O2 Delivery O2 Flow Rate FiO2 09/07/16 14:36 36.5 77 16 103/56 100 Room Air Initial VS: Reviewed General/Constitutional: Well-developed, Well-nourished Head / Eyes: Atraumatic, Normocephalic, PERRL ENT: Mucous membranes moist, Conjunctiva normal, No scleral icterus Respiratory: Breath sounds normal, Clear to auscultation, No respiratory distress Cardiovascular: Regular rate & rhythm, Heart sounds normal, Intact distal pulses Extremities: Vascular intact, Neuro intact, No swelling, No tenderness Neurologic: Alert, Oriented, Nonfocal Abdomen: No guarding, No rebound Organomegaly / Mass / Hernia: Positive: Hernia inguinal R (Easily reducible bedside) Skin: Warm, Dry, Intact Small area of folliculitis that did not look affected. Psychiatric: Mood NL, Not suicidal, Cognitive function NL, Thought content NL Odd affect Interpretation & Diagnostics Interpretation & Diagnostics: VBG: pH:7.236 pCO2:30 pO2:66.7 cHCO3:12.1 cBase:-14.1 Lab Results Interpretation Result Diagram: 09/07/16 1451 09/07/16 1451 Test 09/07/16 14:51 White Blood Count 6.6th/mm3 (3.8-10.1) Red Blood Count 5.37mil/mm3 (4.40-5.80) Hemoglobin 16.5g/dL (13.8-17.2) Hematocrit 47.7% (41.0-50.0) Mean Corpuscular Volume 88.8fL (81-100) Mean Corpuscular Hemoglobin 30.7pg (27.0-35.0) Mean Corpuscular Hemoglobin Concent 34.6% (32.0-37.0) Red Cell Distribution Width 13.7% (12.3-15.4) Platelet Count 206bil/L (150-400) Neutrophils (%) (Auto) 88.2% (40-74) Lymphocytes (%) (Auto) 6.9% (14-46) Monocytes (%) (Auto) 4.1% (4-12) Eosinophils (%) (Auto) 0% (0-5) Basophils (%) (Auto) 0.6% (0-3) Sodium Level 126mEq/L (134-144) Potassium Level 5.1mEq/L (3.5-5.2) Chloride Level 80mEq/L (97-108) Carbon Dioxide Level 10mmol/L (18-29) Blood Urea Nitrogen 28mg/dL (8-27) Creatinine 1.31mg/dL (0.76-1.27) Estimat Glomerular Filtration Rate 57mL/min (>59) Glucose Level 731mg/dL (60-99) Calcium Level 9.5mg/dL (8.5-10.1) Magnesium Level 1.9mg/dL (1.6-2.6) Total Bilirubin 0.8mg/dL (0.0-1.2) Aspartate Amino Transf (AST/SGOT) 63U/L (0-50) Alanine Aminotransferase (ALT/SGPT) 43U/L (0-44) Alkaline Phosphatase 173U/L (25-160) Total Protein 7.8g/dL (6.4-8.4) Albumin 4.6g/dL (3.4-5.0) Ketones Small (Negative) Re-Eval/Medical Decision Med Decision/Clinical Course Overall patient has decreased air do not suspect that he has obvious infection his vital signs and white count are normal, no particular pulmonary symptoms complains of groin infection, however on exam it is a single isolated small area of folliculitis does not seem to be significantly infected. Insulin drip and IV fluids are initiated. Patient will be admitted to intensive care. Time of Eval: 15:30 Patient Status: Condition improved Re-Evaluation/Progress Note: Discussed plan for admission. Pt understands and agrees. Consultation : Referral / Consult Name: Adan Sam MD Consulted With: Hospitalist Call Returned at: 15:23 Lead Sustainability Specialist: Will see patient, Agrees with plan, Accepts admit Counseled Regarding: Diagnosis, Lab results, Need for follow-up, When/why to return to ED Discharge & Departure Primary Impression: DKA (diabetic ketoacidoses) Diabetes mellitus type: type 2 Diabetes mellitus complication detail: without coma Qualified Code: E13.10 - Other specified diabetes mellitus with ketoacidosis without coma Additional Impression: Folliculitis Disposition: ADMITTED TO HOSPITAL Discharge Condition All VS Reviewed: Yes Condition: Improved Referrals: Aroldo Torres MD (PCP) Crit Care Except Billable Proc Time Spent: 30-74 minutes Services Performed: Patient management by me, Time spent at bedside, Reviewing test results Critical Care Notes: See MDM Scribe Attestation Portions of this note were transcribed by Marisabel Garcia. I, Dr. West personally performed the history, physical exam and medical decision-making; I reviewed and confirmed the accuracy of the information in the transcribed note. Signed by: Alexx Arredondo, 09/07/2016 at 1541. copies to: Aroldo Torres MD, Timothy S DO September 07, 2016 14:47 MARISABEL GARCIA September 07, 2016 14:55
[2016-09-07 14:54] LABS: BASOPHILS % (AUTO) 0.6 % (0-3); EOSINOPHILS % (AUTO) 0 % (0-5); MONOCYTES % (AUTO) 4.1 % (4-12); Mean Corpuscular Hemoglobin 30.7 pg (27.0-35.0); Mean Corpuscular Volume 88.8 fL (81-100); NEUTROPHILS % (AUTO) 88.2 % (40-74); Platelet Count 206 bil/L (150-400)
--- NOTE | 2016-09-07 15:10 | ABG ---
DateTimeAnalyzed 15:04:00 -_ pH ____7.236 - pCO2 ___29.5__ -mmHg pO2 ___66.7__ -mmHg HCO3- ___12.1__ -mmol/L ABE __-14.1__ -mmol/L tHb ___15.5__ -g/dL O2Hb ___87.4__ -% COHb ____1.3__ -% MetHb ____1.3__ -% sO2 ___89.7__ -% FIO2 ___21.0__ -% Drawn By Prisillia - Date/Time Notified____ 15:10:00 -_ Oxygen Device 1 RA - Notified By lw - Notified Whom ___Dr. Okelley - B 762 -mmHg tO2 ___19.0__ -Vol% Adan test N/A -
[2016-09-07 15:20] LABS: Magnesium 1.9 mg/dL (1.6-2.6)
[2016-09-07] MEDS ORDERED: Insulin Human REGular Inj 100 UNIT in 0.9% Sodium Chloride 100 ML IV SCH (15:30)
[2016-09-07] MEDS ORDERED: D5W1/2NS 1,000 mL IV PRN (15:35)
[2016-09-07] MEDS ORDERED: TAMS0.4C98 PO (15:40)
[2016-09-07] MEDS ORDERED: SENN-133 PO (15:40)
[2016-09-07] MEDS ORDERED: 0.9% Sodium Chloride 1,000 ML IV SCH (15:42)
[2016-09-07] MEDS ORDERED: Alum-Mag Hydrox-Simeth 30 mL Suspension PO PRN ×2 (15:45→16:10)
[2016-09-07] MEDS ORDERED: Ondansetron 2 mg/mL 2 mL Inj IVPUSH PRN ×2 (15:45→16:10)
[2016-09-07] MEDS: 0.9% Sodium Chloride 1,000 ML IV SCH ×3 (15:54→21:45)
[2016-09-07] MEDS ORDERED: Senna-Docusate 8.6-50 mg Tablet PO PRN (16:10)
[2016-09-07] MEDS ORDERED: Polyethylene Glycol (PEG) 17 Gm Powder PO PRN (16:10)
--- NOTE | 2016-09-07 16:11 | DRSVH ---
PROCEDURE: X-RAY CHEST ONE VIEW, PORTABLE ([id number]) INDICATIONS: Diabetic ketoacidosis. TECHNIQUE: One view of the chest was acquired. COMPARISON: [facility], CR, XR CHEST 1VW (PORTABLE), 05/27/2016, 15:14. FINDINGS: Surgical changes and devices: None. Lungs and pleura: Mild elevation of the left diaphragm is similar to the prior study. There is minim al left basilar atelectasis. No focal consolidation, effusion, or pneumothorax is evident. Mediastinum: Mediastinal contours appear normal. Heart size is normal. There is mild aortic athero sclerosis. Bones and chest wall: No suspicious bony lesions. The bone mineralization is diffusely decreased. O verlying soft tissues appear unremarkable. IMPRESSION: Mild left basilar atelectasis. No pneumonia. Dictated by: Cornell Franco M.D. on 09/07/2016 at 15:08 Approved by: Cornell Franco M.D. on 09/07/2016 at 15:09
--- NOTE | 2016-09-07 16:30 | NUR ---
admit/med rec/plan pt admitted from ED. Pt is a poor historian. Confirmed old history as much as possible with patient. Awaiting med rec from SNF. Plan to treat for DKA and possible infection until able to rule out infection. Pt has a bizarre affect but does not appear to be actively hallucinating.
[2016-09-07 16:49] VITALS: BP 114/50; PULSE 90; RESP 26; O2SAT 98
[2016-09-07 16:53] LABS: APPEARANCE,URINE CLEAR (CLEAR,HAZY); COLOR,URINE YELLOW (YELLOW); OCCULT BLOOD,URINE NEGATIVE (NEGATIVE); UROBILINOGEN,URINE NORMAL (NORMAL)
[2016-09-07 17:32] LABS: Magnesium 1.7 mg/dL (1.6-2.6)
--- NOTE | 2016-09-07 17:38 | DRSVH ---
PROCEDURE: CT BRAIN WITHOUT CONTRAST ([id number]) INDICATIONS: AMS, gait ataxia TECHNIQUE: Noncontrast 4.5 mm thick angled axial sections acquired from the foramen magnum to the vertex, with c oronal reformats. COMPARISON: [facility], CT, BRAIN W/O CONTRAST, 01/11/2011, 8:05. FINDINGS: Image quality: Excellent. CSF spaces: Basal cisterns are patent. No extra-axial fluid collections. The ventricles are symmet hortencia in size and shape. Brain: No intracranial bleeds or masses. There is cerebral volume loss for age, with resultant vent ricular and sulcal prominence. There are periventricular and deep white matter chronic small vessel ischemic changes. There is intracranial internal carotid artery atherosclerosis. Prominent posterio r falx calcification as before Skull and face: Calvarium and visualized facial bones appear intact, without suspicious lesions. Sinuses: Visualized sinuses and mastoids are clear. IMPRESSION: No acute intracranial process. Dictated by: Joe Bone M.D. on 09/07/2016 at 17:35 Approved by: Joe Bone M.D. on 09/07/2016 at 17:37
--- NOTE | 2016-09-07 17:42 | PCM.HPMED ---
Subjective Date of Service September 07, 2016 Primary Provider: Admitting Physician: Adan Sam MD Primary Care Physician: Aroldo Torres MD Attending Physician: Adan Sam MD Chief Complaint: High serum glucose History of Present Illness: Derek Paiz is a 71 year old man with past medical history significant for insulin-dependent diabetes mellitus, seizure disorder, cognitive delay, adenocarcinoma of the duodenum s/p Whipple now in remission, schizophrenia, CAD , HTN who presented to the [facility] ED from [facility] for hyperglycemia and ketones in the urine. The patient is a very poor historian so much of the information was obtained from the chart records and other staff. The patient cannot express if there has been any precipitating factors leading up to his DKA. His thoughts are tangential but occasionally lucid. He was very focused on his blood sugar readings and expressed that they have gone up throughout the day into the 600s. He states he has had DKA twice before, once in his 40s due to aspiration pneumonia and once last year due to a seizure. He states he uses 8 units of Lantus at night and uses a sliding scale of Humalog but does not know how much. He told the ED RN that he has been having problems with ataxia and has had issues with his gait and required a walker which he usually does not use. He denied any chest pain, fever, cough, vomiting, or abdominal pain but did note a rash in his groin. In the ED his vital signs were stable. He was started on an insulin drip and given a bolus of NS. Review of Systems: A comprehensive review of systems was conducted with the patient and found to be negative except as above in the History of Present Illness. Allergies Coded Allergies: codeine (Verified Adverse Reaction, Unknown, upset stomach, 05/27/16) Home Medications Scheduled Calcium Carbonate (Calcium) 600 Mg Tablet 600 MG PO TID Carbamazepine ER (Carbamazepine ER) 200 Mg Cpmp.12hr 200 MG PO BID Cholecalciferol (Vitamin D3) (Vitamin D) 5,000 Unit Capsule 5,000 UNIT PO DAILY Docusate Sodium (Colace) 100 Mg Capsule 100 MG PO BID Finasteride (Finasteride) 5 Mg Tablet 5 MG PO DAILY Insulin Aspart (NovoLOG U100 Insulin Vial) 100 U/Ml U UNIT SUBQ SS Insulin Glargine (Lantus U100 Insulin Vial) 100 Unit/Ml Vial 8 UNIT SUBQ HS Levetiracetam (Keppra) 750 Mg Tablet 750 MG PO BID Levothyroxine (Levothyroxine) 75 Mcg Tablet 75 MCG PO DAILY Lisinopril (Lisinopril) 20 Mg Tablet 20 MG PO DAILY Multivitamin (Multi Vitamin Daily) 1 Each Tablet 1 EACH PO DAILY Polyethylene Glycol 3350 (Miralax) 17 Gm Powd.pack 17 GM PO DAILY Ranitidine (Ranitidine) 150 Mg Capsule 150 MG PO BID Simvastatin (Simvastatin) 20 Mg Tablet 20 MG PO HS Tamsulosin (Flomax) 0.4 Mg Capsule 0.4 MG PO DAILY Tamsulosin ER (Tamsulosin ER) 0.4 Mg Cap.er.24h 0.4 MG PO DAILY Scheduled PRN Acetaminophen (Acetaminophen) 325 Mg Tablet 650 MG PO Q4H PRN PRN For Fever Sennosides (Senna) 8.6 Mg Tablet 8.6 MG PO PRN For Constipation PMH IDDM Seizure disorder - on Keppra and carbamazepine Developmental delay Schizophrenia Bowel cancer - history of stage III node-positive duodenal cancer and underwent subsequent Whipple in July 2009 as well as adjuvant chemotherapy and has remained in remission since Enlarged prostate Hypothyroid GERD History of hyponatremia attributed to medications Superficial abscess above L knee, MRSA CAD Surgical History Whipple procedure Tonsillectomy Corrective eye surgery as a child Family History Mother had type 1 diabetes Social History Hx Alcohol Use: No Hx Substance Use: No Hx Tobacco Use: No Smoking Status: Former Smoker Exam Vital Signs Vital Sign - Last Date Time Temp Pulse Resp B/P Pulse Ox O2 Delivery O2 Flow Rate FiO2 09/07/16 14:36 36.5 77 16 103/56 100 Room Air Exam General: No acute distress, well-developed, well-nourished, appropriately interactive HEENT: Normocephalic, atraumatic. External ears without defect. Pupils equal, round, and reactive to light and accommodation. Anicteric sclerae, moist conjunctivae, and no lid lag. Oropharynx free of erythema and cobble stoning with moist mucosa. Neck: Supple with full range of motion. No jugular venous distension. No bruits. No lymphadenopathy or thyromegaly. Cardiovascular: Regular rate and rhythm with no murmurs, rubs, or gallops appreciated Pulmonary: Clear to auscultation bilaterally with no crackles, wheezes, or rhonchi. Normal respiratory effort with no use of accessory muscles. Abdomen: Bowel tones present. Soft, nontender, nondistended. No hepatosplenomegaly or masses appreciated. Extremities: No clubbing, cyanosis, edema, or lymphadenopathy appreciated. Skin: Normal temperature, turgor, and texture; no ulcers, or subcutaneous nodules appreciated. Folliculitis in the groin. Neurological: Cranial nerves grossly intact. Noncompliant with neurological exam. Psychiatric: Normal mood and affect. Alert and oriented to person, place, and time but thoughts are tangential and difficult to follow. Lab and Diagnostics Result Diagram: 09/07/16 1451 09/07/16 1451 X-Rays, CTs and MRIs X-RAY CHEST ONE VIEW, PORTABLE IMPRESSION: Mild left basilar atelectasis. No pneumonia. Dictated by: Cornell Franco M.D. on 09/07/2016 at 15:08 Additional Diagnostics: Venous Blood Gas DateTimeAnalyzed 15:04:00 -_ pH ____7.236 - pCO2 ___29.5__ -mmHg pO2 ___66.7__ -mmHg HCO3- ___12.1__ -mmol/L Assessment & Plan Derek Paiz is a 71 year old man with past medical history significant for insulin-dependent diabetes mellitus, seizure disorder, cognitive delay, adenocarcinoma of the duodenum s/p Whipple now in remission, schizophrenia, CAD , HTN who presented to the [facility] ED from [facility] for hyperglycemia and ketones in the urine. Diabetic ketoacidosis in the setting of type 1 diabetes mellitus, present on admission -Etiology unclear as patient is a poor historian. Infectious etiology seems unlikely however will order blood cultures, UA and procalcitonin. -Patient reportedly had worsening gate, which is concerning for a stroke. Will proceed with a non-contrast CT of brain. -Patient does have a history of CAD, so will proceed with a troponin and EKG -Anion Gap 36, will continue to check BMP Q4 -DKA protocol initiated by the ED, will continue with clarification: -NS at 200 ml/hr, when blood glucose is <250 but the patient still has a gap > 12 switch to D5 1/2NS at 150 ml/hr -If glucose consistently <150 for one hour, contact provider. Do not simply stop insulin drip. -Continue insulin drip until gap <12. Keep glucose between 150-200 until gap is <12. -When gap <12, contact provider for long acting insulin orders. Please overlap insulin drip with long acting insulin by at least 1 hour. -If K <4.5, contact provider. If K is under 4.5 add add 40 mEq K to IVF: NS + 40 mEq K at 200 mL/hour (MAX RATE: peripheral 250 mL/hr) OR if blood glucose <200 AND anion gap >12: Give D51/2NS +40 mEq K at 200 mL/hour (MAX RATE same as above) -When K >5.3 stop fluid with K and switch back to NS or D51/2NS at prior rate. -Do not stop insulin unless potassium drops <3. Insulin dependent diabetes mellitus type 1, poorly controlled -Most recent A1C 9.6% -Patient was diagnosed at at 20 and has been on insulin most of his life Anion gap metabolic acidosis -Delta delta of 1.8 suggestive of a pure HAGMA -Venous pH of 7.236, venous CO2 of 29.5 arguing against respiratory acidosis -Consider repeat ABG in am. Acute kidney injury, present on admission -Baseline Cr of 0.8, current Cr 1.31 -Etiology unclear, will follow up on a UA. Possibly due to a post-renal process as patient does have an enlarged prostate and is on Flomax. -Urine electrolytes Seizure disorder -Continue home medications once patient is no longer NPO -Will give IV Keppra for now Schizophrenia -Continue home medications once patient is no longer NPO Hypertension -Continue home medications once patient is no longer NPO BPH -Hold off on Flomax for now CODE STATUS: FULL CODE Patient is admitted under inpatient status with expected length of stay greater than 2 midnights due to severity of presenting symptoms, risk of adverse event, and complexity of treatment plan. Time spent 60 min Attending Statement Patient seen and examined with house staff. Agree with all attached documentation. Selina George DO September 07, 2016 16:19 Adan Sam MD September 08, 2016 15:51
[2016-09-07 17:49] LABS: TROPONIN T < 0.010 ug/L (0.0-0.011)
[2016-09-07] MEDS: levETIRAcetam Inj 1,000 MG in IV Premix 1 EACH IV ONE ×2 (17:50→18:36)
[2016-09-07] MEDS: Heparin 5,000 Unit/mL Inj SUBQ SCH (18:37)
[2016-09-07] MEDS ORDERED: Piperacillin-Tazo 3.375 Gm Inj 3.375 GM in Dextrose 5% Minibag Plus 50 ML IV ONE (19:10)
[2016-09-07 19:49] VITALS: BP 117/55; PULSE 87; RESP 21; O2SAT 100
[2016-09-07 20:23] LABS: BASOPHILS % (AUTO) 0.2 % (0-3); EOSINOPHILS % (AUTO) 0 % (0-5); MONOCYTES % (AUTO) 9.1 % (4-12); Mean Corpuscular Hemoglobin 30.7 pg (27.0-35.0); Mean Corpuscular Volume 88.8 fL (81-100); NEUTROPHILS % (AUTO) 83.7 % (40-74); Platelet Count 178 bil/L (150-400)
[2016-09-07] MEDS: carBAMazepine 200 mg ER12 Tablet PO SCH (20:48)
[2016-09-07] MEDS ORDERED: Insulin Human REGular 100 Units/100 mL NS IV SCH ×2 (21:05)
[2016-09-07] MEDS ORDERED: Insulin Human REGular 300 Unit/3 mL Inj IV PRN (21:05)
--- NOTE | 2016-09-07 23:20 | NUR ---
IV Keppra/PO Keppra pt takes Keppra at home, isn't compatible with insulin gtt talked to MD who changed to PO, IV Keppra was scanned by previous RN but pt didn't received this RN gave PO Keppra.
[2016-09-08] VITALS (8 sets, daily range): BP systolic 84–138; BP diastolic 48–66; PULSE 54–75; RESP 12–18; O2SAT 98–100
[2016-09-08] MEDS ORDERED: KCl 40 mEq/500 mL D5W(K 3 - 3.7 & Creat < 2) IV ONE (00:45)
[2016-09-08] MEDS: Heparin 5,000 Unit/mL Inj SUBQ SCH ×3 (00:55→16:44)
[2016-09-08] MEDS: 0.9% Sodium Chloride 1,000 ML IV SCH ×3 (02:35→13:29)
--- NOTE | 2016-09-08 06:34 | NUR ---
potassium pts potassium was 3.2 gave 40mEq KCL IV rider f/u potassium was 3.5 per repletion protocol will order another 40mEq KCL IV rider pts tele SR most of night this morning SB rate 50s.
--- NOTE | 2016-09-08 06:35 | NUR ---
DKA pts anion gap this morning 14, DKA protocol still in place, at this time BG 114 insulin running at 0.05uinits/kg/hr, D10 at 60cc/hr and NS at 200cc/hr, pt only voiding 900cc this shift bladder scanned with 356 pt not wanting alejandra cath placed and said he will try and void again.
[2016-09-08] MEDS ORDERED: KCl 40 mEq/D5W 500 mL 40 MEQ in IV Premix 500 EACH IV ONE (07:25)
[2016-09-08] MEDS ORDERED: 0.9% Sodium Chloride 1,000 ML IV ONE (08:15)
[2016-09-08] MEDS: carBAMazepine 200 mg ER12 Tablet PO SCH ×2 (08:20→20:40)
[2016-09-08] MEDS ORDERED: Insulin Human NPH-Reg 70-30 100 Unit/mL 3 mL Pen SUBQ ONE (13:45)
--- NOTE | 2016-09-08 15:42 | PCM.PNMED ---
Subjective Date of Service September 08, 2016 Subjective Derek Paiz is a 71 year old man with past medical history significant for insulin-dependent diabetes mellitus, seizure disorder, cognitive delay, adenocarcinoma of the duodenum s/p Whipple now in remission, schizophrenia, CAD , HTN who presented to the [facility] ED from [facility] for hyperglycemia and ketones in the urine. Hospital day #2. Overnight: No acute events. Continued with DKA protocol. Today: Patient is more clear and denies any pain but does note that he still has a groin rash. He would like to eat. The remainder of the ROS is negative except as noted above. Exam Vital Signs Vital Sign - Last Date Time Temp Pulse Resp B/P Pulse Ox O2 Delivery O2 Flow Rate FiO2 09/08/16 08:59 36.8 56 14 84/56 99 Room Air Intake and Output 09/07/16 09/07/16 09/08/16 Cumulative From/Thru 15:00 23:00 07:00 09/07/16 14:36 - 09/08/16 06:22 Intake Total 2335 ml 3370 ml 5705 ml Output Total 400 ml 900 ml 1300 ml Balance 1935 ml 2470 ml 4405 ml Intake Oral 0 ml 0 ml IV Total 2335 ml 3370 ml 5705 ml Output Urine Total 400 ml 900 ml 1300 ml # Bowel Movements 1 1 Exam General: No acute distress, well-developed, well-nourished, appropriately interactive HEENT: Normocephalic, atraumatic. External ears without defect. Pupils equal, round, and reactive to light and accommodation. Anicteric sclerae, moist conjunctivae, and no lid lag. Oropharynx free of erythema and cobble stoning with moist mucosa. Neck: Supple with full range of motion. No jugular venous distension. No bruits. No lymphadenopathy or thyromegaly. Cardiovascular: Regular rate and rhythm with no murmurs, rubs, or gallops appreciated Pulmonary: Clear to auscultation bilaterally with no crackles, wheezes, or rhonchi. Normal respiratory effort with no use of accessory muscles. Abdomen: Bowel tones present. Soft, nontender, nondistended. No hepatosplenomegaly or masses appreciated. Extremities: No clubbing, cyanosis, edema, or lymphadenopathy appreciated. Skin: Normal temperature, turgor, and texture; no ulcers, or subcutaneous nodules appreciated. Folliculitis in the groin. Neurological: Cranial nerves grossly intact. Noncompliant with neurological exam. Psychiatric: Normal mood and affect. Alert and oriented to person, place, and time but thoughts are tangential and difficult to follow although improved from yesterday. IVs and Medications Medications Reviewed: Medications were reviewed in detail Lab and Diagnostics Result Diagram: 09/07/16 1947 09/08/16 1245 X-Rays, CTs and MRIs X-RAY CHEST ONE VIEW, PORTABLE IMPRESSION: Mild left basilar atelectasis. No pneumonia. Dictated by: Cornell Franco M.D. on 09/07/2016 at 15:08 Additional Diagnostics Venous Blood Gas DateTimeAnalyzed 15:04:00 -_ pH ____7.236 - pCO2 ___29.5__ -mmHg pO2 ___66.7__ -mmHg HCO3- ___12.1__ -mmol/L Assessment & Plan Derek Paiz is a 71 year old man with past medical history significant for insulin-dependent diabetes mellitus, seizure disorder, cognitive delay, adenocarcinoma of the duodenum s/p Whipple now in remission, schizophrenia, CAD , HTN who presented to the [facility] ED from [facility] for hyperglycemia and ketones in the urine. Hospital day #2 Diabetic ketoacidosis in the setting of type 1 diabetes mellitus, present on admission, resolved. -Etiology unclear as patient is a poor historian. Infectious etiology seems unlikely -blood cultures, UA and procalcitonin negative. -Patient reportedly had worsening gate. Non-contrast CT of brain negative. -Patient does have a history of CAD, but troponin negative -Anion Gap 36 closed. -DKA protocol initiated by the ED, continued. -Given 18 units of NPH. Will resume home 8 units Lantus this PM with correctional scale Lispro. Insulin dependent diabetes mellitus type 1, poorly controlled -Most recent A1C 9.6% -Patient was diagnosed at 20 and has been on insulin most of his life Anion gap metabolic acidosis, resolved -Delta delta of 1.8 suggestive of a pure HAGMA due to lactic acid and ketones -Venous pH of 7.236, venous CO2 of 29.5 arguing against respiratory acidosis Acute kidney injury, present on admission -Baseline Cr of 0.8, current Cr 1.31 -Etiology unclear. FENa 1.2% suggestive of intrarenal etiology however, patient' s Cr improved with hydration. Seizure disorder -Continue home medications Schizophrenia -Continue home medications Hypertension -Continue home medication BPH -Hold off on Flomax for now as patient is borderline hypotensive CODE STATUS: FULL CODE Dispo: Anticipate D/C tomorrow back to SNF. Attending Statement Patient seen and examined with house staff. Agree with all attached documentation. Selina George DO September 08, 2016 15:42 Adan Sam MD September 09, 2016 14:08
[2016-09-08] MEDS ORDERED: Glucose 40% Oral Gel 15 Gm Tube PO PRN (15:45)
[2016-09-08] MEDS: Insulin LISPRO 300 Unit/3 mL Inj SUBQ SCH ×2 (16:45→21:31)
--- NOTE | 2016-09-08 18:29 | NUR ---
hypotension/anion gap/luis alfredo/transfer/bm this am pt is hypotensive MD notified, bolus given. Pt has not been hypotensive since bolus completed. Afternoon bmp shows anion gap is 13, insulin gtt dc'd and orders to transfer are received. 1600 notified that pt has had HR in the mid 50's down from 90's on admit. 1530 pt has xxl bm that cloggs toilet, mesha notified. Pt states he feels much better.
[2016-09-08] MEDS ORDERED: Insulin GLARgine 100 Unit/mL Syringe SUBQ SCH (21:00)
--- NOTE | 2016-09-08 21:54 | NUR ---
Pt transferred to room 2007. Admit status changed to PCC. Handoff report given to Elizabeth Vance Rn. All belongings transported with pt and pt in pt's new room.
[2016-09-09] MEDS: Heparin 5,000 Unit/mL Inj SUBQ SCH ×2 (00:10→09:21)
[2016-09-09 04:08] VITALS: BP 127/64; PULSE 57; RESP 16; O2SAT 95
[2016-09-09 05:51] VITALS: PULSE 58
--- NOTE | 2016-09-09 05:55 | NUR ---
Hypoglycemia Blood glucose check at 0500 this AM was 73 to assessment; 240ml of apple juice given. BG upon reassessment at approx. 0530 increased to 102. VSS throughout shift, tele SB/SR 50s-60s; pt denies pain or discomfort.
[2016-09-09 08:00] VITALS: PULSE 56
[2016-09-09] MEDS: Insulin LISPRO 300 Unit/3 mL Inj SUBQ SCH ×2 (08:00→12:27)
[2016-09-09] MEDS ORDERED: Polyethylene Glycol (PEG) 17 Gm Powder PO SCH (08:30)
[2016-09-09] MEDS: carBAMazepine 200 mg ER12 Tablet PO SCH (09:19)
[2016-09-09 09:25] VITALS: BP 166/94; PULSE 86; RESP 18; O2SAT 97
--- NOTE | 2016-09-09 10:16 | NUR ---
Social Work: Initial Assessment/Discharge D: Per EMR review, pt is a 71 year old male admitted for DKA. Pt is Medicare with [facility] supplement; pt has no LTC insurance or VA benefits. PCP is Aroldo Torres MD. NOK is Germania Paiz, sister, [phone]. Advanced directives not completed- POLST on file. Info provided to pt. Readmit score is moderate, 4/8. Pt discussed in am rounds. Pt is medically stable for discharge back to [facility]. Pt is a LTC resident at [facility]. LEAD BURNER spoke with Mckenzie Tyler, exhibits coordinator with [facility]. Pt has been accepted back with his PCP to follow. LEAD BURNER met with pt at bedside to confirm discharge plan. Pt agrees with plan to return to [facility] and states his only concern is transportation. LEAD BURNER informed him that [facility] will arrange for transport once orders are finalized. Pt agrees and declined to have LEAD BURNER update his sister/NOK. A Pt is I with ambulation at baseline and uses no DME. has been I during admission. P: Pt to discharge back to [facility] with Brian to follow; LEAD BURNER to fax orders and medications once finalized. [facility] to arrange for transport. MONA Palacio Addendum: 09/09/16 at 1020 by CRISTOBAL GUILLORY SS Amended: Links added. Addendum: 09/09/16 at 1240 by CRISTOBAL GUILLORY SS Orders completed and faxed to [facility] Hern[facility]dez; copies on chart. Transportation arranged for 2:00pm. Pt and bedside RN aware.
--- NOTE | 2016-09-09 11:39 | PCM.DIMED ---
Selina George DO 09/09/16 1139: Discharge Instructions Date of Service September 09, 2016 Dates of Hospitalization September 07, 2016 at 16:02 Discharge Diagnosis Discharge Diagnosis Diabetic ketoacidosis in the setting of type 1 diabetes mellitus, present on admission, resolved. Insulin dependent diabetes mellitus type 1, poorly controlled Anion gap metabolic acidosis, resolved Acute kidney injury, present on admission Seizure disorder Schizophrenia Hypertension BPH Medication Instructions No changes to insulin Diet Diabetic Activity Limited until seen by PCP Call your provider Fever or Chills, Shortness of breath Patient Instructions Follow-up plan For blood sugar over 400 please recheck in 4 hours x2. If it remains high please notify MD. Follow-up Provider: Aroldo Torres MD Follow-up with PCP in: 1 week Adan Sam MD 09/09/16 1434: Discharge Instructions Attending's Statement Patient seen and examined with house staff. Agree with all attached documentation. Selina George DO September 09, 2016 11:39 Adan Sam MD September 09, 2016 14:34
[2016-09-09 12:28] VITALS: BP 171/95; PULSE 61; RESP 18; O2SAT 99
--- NOTE | 2016-09-09 15:41 | NUR ---
Discharge Pt discharged back to [facility]. All belongings taken with. IV and tele removed. No changes in medications. Report called here soon.
--- NOTE | 2016-09-10 17:32 | PCM.DC.MED ---
Discharge Summary Date of Service September 10, 2016 Dates of Hospitalization Date of Hospital Admission September 07, 2016 at 16:02 Date of Discharge: September 09, 2016 Providers: Admitting Physician: Adan Sam MD Primary Care Physician: Aroldo Torres MD Attending Physician: Adan Sam MD Diagnosis at Time of Discharge Diagnosis at Time of Discharge Diabetic ketoacidosis in the setting of type 1 diabetes mellitus, present on admission, resolved. Insulin dependent diabetes mellitus type 1, poorly controlled Anion gap metabolic acidosis, resolved Acute kidney injury, present on admission Seizure disorder Schizophrenia Hypertension BPH Procedures XRay, CTs & MRIs X-RAY CHEST ONE VIEW, PORTABLE IMPRESSION: Mild left basilar atelectasis. No pneumonia. Dictated by: Cornell Franco M.D. on 09/07/2016 at 15:08 Other Diagnostics Venous Blood Gas DateTimeAnalyzed 15:04:00 -_ pH ____7.236 - pCO2 ___29.5__ -mmHg pO2 ___66.7__ -mmHg HCO3- ___12.1__ -mmol/L Brief History Derek Paiz is a 71 year old man with past medical history significant for insulin-dependent diabetes mellitus, seizure disorder, cognitive delay, adenocarcinoma of the duodenum s/p Whipple now in remission, schizophrenia, CAD , HTN who presented to the [facility] ED from [facility] for hyperglycemia and ketones in the urine. The patient is a very poor historian so much of the information was obtained from the chart records and other staff. The patient cannot express if there has been any precipitating factors leading up to his DKA. His thoughts are tangential but occasionally lucid. He was very focused on his blood sugar readings and expressed that they have gone up throughout the day into the 600s. He states he has had DKA twice before, once in his 40s due to aspiration pneumonia and once last year due to a seizure. He states he uses 8 units of Lantus at night and uses a sliding scale of Humalog but does not know how much. He told the ED RN that he has been having problems with ataxia and has had issues with his gait and required a walker which he usually does not use. He denied any chest pain, fever, cough, vomiting, or abdominal pain but did note a rash in his groin. In the ED his vital signs were stable. He was started on an insulin drip and given a bolus of NS. Hospital Course Derek Paiz is a 71 year old man with past medical history significant for insulin-dependent diabetes mellitus, seizure disorder, cognitive delay, adenocarcinoma of the duodenum s/p Whipple now in remission, schizophrenia, CAD , HTN who presented to the [facility] ED from [facility] for hyperglycemia and ketones in the urine. Hospital day #2 Diabetic ketoacidosis in the setting of type 1 diabetes mellitus, present on admission, resolved. -Etiology unclear as patient is a poor historian. Infectious etiology seemed unlikely -blood cultures, UA and procalcitonin negative. -Patient reportedly had worsening gate. Non-contrast CT of brain negative. -Patient does have a history of CAD, but troponin negative -Anion Gap 36, closed. -DKA protocol initiated by the ED, continued. -Given 18 units of NPH. Resume home 8 units Lantus with correctional scale Lispro. Insulin dependent diabetes mellitus type 1, poorly controlled -Most recent A1C 9.6% -Patient was diagnosed at 20 and has been on insulin most of his life Anion gap metabolic acidosis, resolved -Delta delta of 1.8 suggestive of a pure HAGMA due to lactic acid and ketones -Venous pH of 7.236, venous CO2 of 29.5 arguing against respiratory acidosis Acute kidney injury, present on admission -Baseline Cr of 0.8, current Cr 1.31 -Etiology unclear. FENa 1.2% suggestive of intrarenal etiology however, patient' s Cr improved with hydration. Seizure disorder -Continued home medications Schizophrenia -Continued home medications Hypertension -Continued home medication BPH -Held off on Flomax as patient was borderline hypotensive Exam Vital Signs (Last) Date Time Temp Pulse Resp B/P Pulse Ox O2 Delivery O2 Flow Rate FiO2 09/09/16 12:28 37.1 61 18 171/95 99 Room Air Exam General: No acute distress, well-developed, well-nourished, appropriately interactive HEENT: Normocephalic, atraumatic. External ears without defect. Pupils equal, round, and reactive to light and accommodation. Anicteric sclerae, moist conjunctivae, and no lid lag. Oropharynx free of erythema and cobble stoning with moist mucosa. Neck: Supple with full range of motion. No jugular venous distension. No bruits. No lymphadenopathy or thyromegaly. Cardiovascular: Regular rate and rhythm with no murmurs, rubs, or gallops appreciated Pulmonary: Clear to auscultation bilaterally with no crackles, wheezes, or rhonchi. Normal respiratory effort with no use of accessory muscles. Abdomen: Bowel tones present. Soft, nontender, nondistended. No hepatosplenomegaly or masses appreciated. Extremities: No clubbing, cyanosis, edema, or lymphadenopathy appreciated. Skin: Normal temperature, turgor, and texture; no ulcers, or subcutaneous nodules appreciated. Folliculitis in the groin. Neurological: Cranial nerves grossly intact. Noncompliant with neurological exam. Psychiatric: Normal mood and affect. Alert and oriented to person, place, and time but thoughts are tangential and difficult to follow although improved from yesterday. Test 09/07/16 14:51 09/07/16 16:34 09/07/16 16:56 09/07/16 17:33 Total Bilirubin 0.8mg/dL (0.0-1.2) Aspartate Amino Transf (AST/SGOT) 63U/L (0-50) Alanine Aminotransferase (ALT/SGPT) 43U/L (0-44) Alkaline Phosphatase 173U/L (25-160) Total Protein 7.8g/dL (6.4-8.4) Albumin 4.6g/dL (3.4-5.0) Ketones Small (Negative) Urine Color Yellow (YELLOW) Urine Appearance Clear (CLEAR,HAZY) Urine pH 5.0 (5.0-8.0) Urine Specific [place] 1.010 (1.003-1.035) Urine Protein Negativemg/dL (NEG,TRACE) Urine Glucose (UA) 1000mg/dL (NEGATIVE) Urine Ketones 40mg/dL (NEGATIVE) Urine Occult Blood Negative (NEGATIVE) Urine Nitrite Negative (NEGATIVE) Urine Bilirubin Negative (NEGATIVE) Urine Urobilinogen Normalmg/dL (NORMAL) Urine Leukocyte Esterase Negative (NEGATIVE) Urine RBC 0-2/hpf (0-2) Urine WBC 0-5/hpf (0-5) Urine Epithelial Cells Occasional/hpf (NONE-MOD) Urine Crystals None seen (NONE SEEN) Urine Bacteria None/hpf (NONE-FEW) Urine Hyaline Casts None/lpf (NONE) Urine Granular Casts None seen (NONE SEEN) Urine Waxy Casts None seen (NONE SEEN) Urine Red Blood Cell Casts None seen (NONE SEEN) Urine White Blood Cell Casts None seen (NONE SEEN) Urine Mucus None seen (None Seen) Urine Trichomonas None seen (NONE SEEN) Urine Yeast None (NONE SEEN) Urinalysis Comment None Urine Culture Reflexed Not indicated Hemoglobin A1c 9.4% (4.8-5.6) Magnesium Level 1.7mg/dL (1.6-2.6) Troponin T < 0.010ug/L (0.0-0.011) Procalcitonin 0.08ng/mL (0.00-0.08) Urine Random Creatinine 28mg/dL (22-328) Urine Random Sodium 23mEq/L Test 09/07/16 19:47 09/08/16 02:05 09/08/16 05:55 09/08/16 15:53 White Blood Count 11.8th/mm3 (3.8-10.1) Red Blood Count 4.66mil/mm3 (4.40-5.80) Hemoglobin 14.3g/dL (13.8-17.2) Hematocrit 41.4% (41.0-50.0) Mean Corpuscular Volume 88.8fL (81-100) Mean Corpuscular Hemoglobin 30.7pg (27.0-35.0) Mean Corpuscular Hemoglobin Concent 34.5% (32.0-37.0) Red Cell Distribution Width 13.7% (12.3-15.4) Platelet Count 178bil/L (150-400) Neutrophils (%) (Auto) 83.7% (40-74) Lymphocytes (%) (Auto) 6.8% (14-46) Monocytes (%) (Auto) 9.1% (4-12) Eosinophils (%) (Auto) 0% (0-5) Basophils (%) (Auto) 0.2% (0-3) Hold [place] Top Tube Received (Received) Lactic Acid Level 1.8mmol/L (0.4-2.0) Hold [place] Top Tube Received (Received) Test 09/09/16 08:45 Sodium Level 140mEq/L (134-144) Potassium Level 4.6mEq/L (3.5-5.2) Chloride Level 107mEq/L (97-108) Carbon Dioxide Level 18mmol/L (18-29) Blood Urea Nitrogen 13mg/dL (8-27) Creatinine 0.76mg/dL (0.76-1.27) Estimat Glomerular Filtration Rate 108mL/min (>59) Glucose Level 109mg/dL (60-99) Calcium Level 8.0mg/dL (8.5-10.1) Discharge Medications Discharge Medications Calcium Carbonate (Calcium) 600 Mg Tablet 600 MG PO TID (Reported) Carbamazepine ER (Carbamazepine ER) 200 Mg Cpmp.12hr 200 MG PO BID (Reported) Cholecalciferol (Vitamin D3) (Vitamin D) 5,000 Unit Capsule 5,000 UNIT PO DAILY (Reported) Docusate Sodium (Colace) 100 Mg Capsule 100 MG PO BID (Reported) Finasteride (Finasteride) 5 Mg Tablet 5 MG PO DAILY (Reported) Insulin Aspart (NovoLOG U100 Insulin Vial) 100 U/Ml U UNIT SUBQ SS (Reported) Insulin Glargine (Lantus U100 Insulin Vial) 100 Unit/Ml Vial 8 UNIT SUBQ HS ( Reported) Levetiracetam (Keppra) 750 Mg Tablet 750 MG PO BID (Reported) Levothyroxine (Levothyroxine) 75 Mcg Tablet 75 MCG PO DAILY (Reported) Lisinopril (Lisinopril) 20 Mg Tablet 20 MG PO DAILY (Reported) Multivitamin (Multi Vitamin Daily) 1 Each Tablet 1 EACH PO DAILY (Reported) Polyethylene Glycol 3350 (Miralax) 17 Gm Powd.pack 17 GM PO DAILY (Reported) Ranitidine (Ranitidine) 150 Mg Capsule 150 MG PO BID (Reported) Simvastatin (Simvastatin) 20 Mg Tablet 20 MG PO HS (Reported) Tamsulosin (Flomax) 0.4 Mg Capsule 0.4 MG PO DAILY (Reported) Tamsulosin ER (Tamsulosin ER) 0.4 Mg Cap.er.24h 0.4 MG PO DAILY (Reported) As needed Acetaminophen (Acetaminophen) 325 Mg Tablet 650 MG PO Q4H PRN PRN For Fever ( Reported) Sennosides (Senna) 8.6 Mg Tablet 8.6 MG PO PRN For Constipation (Reported) Additional med instructions No changes to insulin Followup Plan Disposition: [facility] Follow-up plan For blood sugar over 400 please recheck in 4 hours x2. If it remains high please notify MD. Discharge Diet: Diabetic Discharge Activity: Limited until seen by PCP Follow-up Provider: Aroldo Torres MD Follow-up with PCP in: 1 week Time spent 40 min Attending Statement Patient seen and examined with house staff, agree with all atached documentation. Selina George DO September 10, 2016 17:32 Adan Sam MD September 15, 2016 11:08
== END 2016-09-09 14:45 | disposition home or self-care (01) | DRG 638 ==
LOC: EDBD 14:23 → SED 14:23 → EDUNIT# 14:23 → CCU 16:02 → PCC 09-08 15:57
PROVIDERS: ADMIT Hospitalist; ATTEND Hospitalist
PROC: 4A033B1 Measurement of Arterial Pressure, Peripheral, Percutaneous Approach (ICD-10-PCS; principal; 2016-09-07)
DX: E10.10 Type 1 diabetes mellitus with ketoacidosis without coma (principal); N17.9 Acute kidney failure, unspecified; E87.1 Hypo-osmolality and hyponatremia; G40.909 Epilepsy, unspecified, not intractable, without status epilepticus; I25.10 Atherosclerotic heart disease of native coronary artery without angina pectoris; I10 Essential (primary) hypertension; F20.9 Schizophrenia, unspecified; E03.9 Hypothyroidism, unspecified; R27.0 Ataxia, unspecified; K21.9 Gastro-esophageal reflux disease without esophagitis; L73.9 Follicular disorder, unspecified; Z85.068 Personal history of other malignant neoplasm of small intestine; Z87.891 Personal history of nicotine dependence